=== PATIENT | male | born 1980 | race African-American/Black ===

== ENCOUNTER 2017-08-26 16:40 | Emergency (ER) | payer BC ==
[~2017-08-26] VITALS: Ht 182.9 cm; Wt 90.8 kg
[2017-08-26 18:56] LABS: BASOPHIL (%) 0.9 % (0-1); BASOPHIL COUNT 0.1 K/uL (0-0.1); EOSINOPHIL (%) 1.3 % (0-5); EOSINOPHIL COUNT 0.1 K/uL (0-0.3); HEMOGLOBIN 15.6 G/DL (12.5-16.6); IMMATURE GRANULOCYTE (%) 0.3 % (0.0-0.7); LYMPHOCYTE (%) 21.7 % (15-42); LYMPHOCYTE COUNT 1.7 K/uL (1.0-2.8); MCHC 35.5 G/DL (30.0-36.0); MCV 95.9 FL (86-99); MONOCYTE (%) 11.6 % (3-12); MONOCYTE COUNT 0.9 K/uL (0-0.8); NEUTROPHIL (%) 64.2 % (45-76); NEUTROPHIL COUNT 4.9 K/uL (1.8-6.4); PLATELET COUNT 277 K/uL (156-360); RBC DIS.WIDTH-SD 41.9 % (39-53); RED BLOOD COUNT 4.59 M/uL (4.00-5.50); WHITE BLOOD COUNT 7.6 K/uL (4.1-10.2)
[2017-08-26 19:16] LABS: ALBUMIN 4.6 g/dL (3.2-4.8); CHLORIDE 102 mEq/L (99-109); POTASSIUM 4.3 mEq/L (3.7-5.4); SODIUM 141 mEq/L (136-147)
[2017-08-26 19:18] LABS: GLUCOSE 97 mg/dL (70-99)
[2017-08-26 19:19] LABS: TOTAL PROTEIN 8.4 g/dL (6.4-8.3)
[2017-08-26 19:20] LABS: TOTAL BILIRUBIN 0.9 mg/dL (0.0-1.0)
[2017-08-26 19:22] LABS: ALKALINE PHOSPHATASE 84 IU/L (3-129); CREATININE 1.1 mg/dL (0.6-1.3); GFR ESTIMATE (CALCULATED) > 59 mL/min/ (58.99-99999)
[2017-08-26 19:23] LABS: UREA NITROGEN (BUN) 13 mg/dL (9-23)
[2017-08-26 19:24] LABS: AST (GOT) 33 IU/L (2-34)
[2017-08-26 19:25] LABS: ALT (GPT) 23 IU/L (3-49); LIPASE 14 U/L (1.0-51.0)
[2017-08-26 19:42] VITALS: BP 127/79
== END 2017-08-26 19:43 | disposition home or self-care (01) ==
LOC: EME 16:40
PROVIDERS: Physician Assistant
DX: T14.8XXA Other injury of unspecified body region, initial encounter (principal); S09.90XA Unspecified injury of head, initial encounter; Y04.2XXA Assault by strike against or bumped into by another person, initial encounter
CPT/HCPCS: 80053; 83690; 85025; 99281; 99284